=== PATIENT | female | born 1995 | race Caucasian/White ===

== ENCOUNTER 2016-11-18 03:22 | Observation (INO) | payer MEDICAID, OTHER ==
[~2016-11-18] VITALS: Ht 157.5 cm; Wt 90.0 kg
[2016-11-18 03:22] VITALS: BP 189/117; PULSE 81; RESP 18; TEMP 97.6; O2SAT 98
[~2016-11-18 03:22] MED LIST: IBUP600 PO; NIFE1TAB85 PO; PRENCAP10 PO
[2016-11-18] MEDS ORDERED: SODIUM CHLOR 0.9% 1000 ML INJ 1,000 ML IV SCH ×3 (03:34→05:45)
--- NOTE | 2016-11-18 03:42 | PD ---
HPI Chief Complaint: GI Complaint Time Seen by Provider: 03:29 Travel History International Travel<30 days: No Contact w/Intl Traveler<30days: No Traveled to known affect area: No History of Present Illness HPI 21-year-old female LMP now has right upper quadrant pain for 2 days. No fever. Appetite has been normal. Onset gradual. Pain is worse with palpation. Severity moderate. Denies PMH/PSH. No meds/allergies. PFSH Past Medical History ?: Not LMP: 11/16/16 Social History Alcohol Use: No Tobacco Use: No Allergies-Medications (Allergen,Severity, Reaction): Coded Allergies: No Known Allergies (Unverified , 11/18/16) Reported Meds & Prescriptions Reported Meds & Active Scripts Active No Active Prescriptions or Reported Medications Review of Systems Except as stated in HPI: all other systems reviewed are Neg General / Constitutional: No: Fever, Chills Gastrointestinal: Positive: Abdominal Pain, No: Nausea, Vomiting, Diarrhea Physical Exam Narrative GENERAL: 21 yo F, WNWD SKIN: Warm and dry. HEAD: Atraumatic. Normocephalic. EYES: Pupils equal and round. No scleral icterus. No injection or drainage. ENT: No nasal bleeding or discharge. Mucous membranes pink and moist. NECK: Trachea midline. No JVD. CARDIOVASCULAR: Regular rate and rhythm. RESPIRATORY: No accessory muscle use. Clear to auscultation. Breath sounds equal bilaterally. GASTROINTESTINAL: Positive Pereira's sign. Soft. No tenderness at McBurney's point. MUSCULOSKELETAL: Extremities without clubbing, cyanosis, or edema. No obvious deformities. NEUROLOGICAL: Awake and alert. No obvious cranial nerve deficits. Motor grossly within normal limits. Five out of 5 muscle strength in the arms and legs. Normal speech. PSYCHIATRIC: Appropriate mood and affect; insight and judgment normal. Data Data Last Documented VS Vital Signs Date Time Temp Pulse Resp B/P Pulse Ox O2 Delivery O2 Flow Rate FiO2 11/18/16 04:18 16 11/18/16 03:22 97.6 81 189/117 98 Room Air HTN noted Orders Complete Blood Count With Diff (11/18/16 03:34) Comprehensive Metabolic Panel (11/18/16 03:34) Lipase (11/18/16 03:34) Urinalysis - C+S If Indicated (11/18/16 03:34) Us Abdomen Gallbladder (11/18/16 ) Iv Access Insert/Monitor (11/18/16 03:34) Ecg Monitoring (11/18/16 03:34) Oximetry (11/18/16 03:34) Ondansetron Inj (Zofran Inj) (11/18/16 03:45) Sodium Chlor 0.9% 1000 Ml Inj (Ns 1000 M (11/18/16 03:34) Sodium Chloride 0.9% Flush (Ns Flush) (11/18/16 03:45) Hydromorphone Pf Inj (Dilaudid Pf Inj) (11/18/16 03:45) Al-Mag Hy-Si 40-40-4 Mg/Ml Liq (Mag-Al P (11/18/16 03:45) Lidocaine 2% Viscous (Xylocaine 2% Visco (11/18/16 03:45) Ed Urine Pregnancytest Poc (11/18/16 03:34) Urine Culture (11/18/16 03:50) Ciprofloxacin (Cipro) (11/18/16 04:30) Hydromorphone Pf Inj (Dilaudid Pf Inj) (11/18/16 05:15) Metronidazole 500 Mg Inj (Flagyl 500 Mg (11/18/16 05:45) Sodium Chlor 0.9% 1000 Ml Inj (Ns 1000 M (11/18/16 05:45) Admit Order (Ed Use Only) (11/18/16 05:35) Labs Laboratory Tests Test 11/18/16 03:50 White Blood Count 12.5 TH/MM3 Red Blood Count 4.34 MIL/MM3 Hemoglobin 13.4 GM/DL Hematocrit 38.4 % Mean Corpuscular Volume 88.4 FL Mean Corpuscular Hemoglobin 30.8 PG Mean Corpuscular Hemoglobin 34.9 % Concent Red Cell Distribution Width 13.8 % Platelet Count 181 TH/MM3 Mean Platelet Volume 9.7 FL Neutrophils (%) (Auto) 73.3 % Lymphocytes (%) (Auto) 19.3 % Monocytes (%) (Auto) 6.3 % Eosinophils (%) (Auto) 0.5 % Basophils (%) (Auto) 0.6 % Neutrophils # (Auto) 9.2 TH/MM3 Lymphocytes # (Auto) 2.4 TH/MM3 Monocytes # (Auto) 0.8 TH/MM3 Eosinophils # (Auto) 0.1 TH/MM3 Basophils # (Auto) 0.1 TH/MM3 CBC Comment DIFF FINAL Differential Comment Urine Color RED Urine Turbidity HAZY Urine pH 6.0 Urine Specific [place] 1.033 Urine Protein 100 mg/dL Urine Glucose (UA) NEG mg/dL Urine Ketones TRACE mg/dL Urine Occult Blood LARGE Urine Nitrite NEG Urine Bilirubin NEG Urine Urobilinogen LESS THAN 2.0 MG/DL Urine Leukocyte Esterase MOD Urine RBC /hpf Urine WBC 61 /hpf Urine Squamous Epithelial 23 /hpf Cells Urine Bacteria FEW /hpf Urine Mucus FEW /lpf Microscopic Urinalysis Comment CULTURE INDICATED Sodium Level 142 MEQ/L Potassium Level 4.0 MEQ/L Chloride Level 106 MEQ/L Carbon Dioxide Level 28.1 MEQ/L Anion Gap 8 MEQ/L Blood Urea Nitrogen 14 MG/DL Creatinine 0.80 MG/DL Estimat Glomerular Filtration 91 ML/MIN Rate Random Glucose 108 MG/DL Calcium Level 8.9 MG/DL Total Bilirubin 0.3 MG/DL Aspartate Amino Transf 12 U/L (AST/SGOT) Alanine Aminotransferase 29 U/L (ALT/SGPT) Alkaline Phosphatase 88 U/L Total Protein 7.9 GM/DL Albumin 4.1 GM/DL Lipase 106 U/L [facility] Medical Decision Making Medical Screen Exam Complete: Yes Emergency Medical Condition: Yes Medical Record Reviewed: Yes Differential Diagnosis Constipation, Gastritis, Acute Cholecystitis, Biliary Colic, Pancreatitis, QUINTEROS , Hepatitis, Bowel Obstruction, Cystitis, Mesenteric Ischemia, AAA, Appendicitis , Renal Stone/Hydronephrosis, GERD, perforated viscous Narrative Course CBC & BMP Diagram 11/18/16 03:50 LFTs normal Lipase normal UA UTI present Last 24 hours Impressions Gall Bladder Ultrasound 11/18/16 0000 Signed Impressions: Service Date/Time: Friday, November 18, 2016 04:21 - CONCLUSION: Multiple stones in the gallbladder. No biliary tract obstruction. Hugh Conway MD + Pereira's sign. Dilaudid 0.75mg IV given twice. Cipro/Flagyl started. d/w Dr Fuentes. d/w Dr Clemens. NS 125/hr. Diagnosis Primary Impression: Gallbladder calculus without cholecystitis Qualified Code: K80.20 - Calculus of gallbladder without cholecystitis without obstruction Additional Impressions: UTI (urinary tract infection) Qualified Code: N30.01 - Acute cystitis with hematuria Intractable abdominal migraine HTN (hypertension) Qualified Code: I15.9 - Secondary hypertension Admitting Information Admitting Physician Requests: Admit Scripts No Active Prescriptions or Reported Meds Jesus Alberto Saleh MD Nov 18, 2016 03:42
[2016-11-18] MEDS ORDERED: SODIUM CHLORIDE 0.9% FLUSH 5 ML FLUSH IVF PRN ×2 (03:45→19:30)
[2016-11-18] MEDS ORDERED: HYDROmorphone HCL PF 1 MG/ML VIAL IVS ONE (03:45)
[2016-11-18] MEDS ORDERED: ALUMINUM/MAGNESIUM/SIMETH 30 ML CUP PO ONE (03:45)
[2016-11-18] MEDS ORDERED: LIDOCAINE VISCOUS 2% SOLN 15 ML UDC PO ONE (03:45)
[2016-11-18] MEDS ORDERED: ONDANSETRON HCL 4 MG/2 ML VIAL IVP ONE (03:45)
[2016-11-18 04:13] LABS: AUTOMATED NEUTROPHIL # 9.2 TH/MM3 (1.8-7.7); BASOPHIL # 0.1 TH/MM3 (0-0.2); BASOPHIL % 0.6 % (0.0-2.0); EOSINOPHIL # 0.1 TH/MM3 (0-0.4); EOSINOPHIL % 0.5 % (0.0-4.0); HEMATOCRIT 38.4 % (35.0-46.0); HEMO FLAGS DIFF FINAL; LYMPH % 19.3 % (9.0-44.0); LYMPHOCYTE # 2.4 TH/MM3 (1.0-4.8); MEAN CELL VOLUME 88.4 FL (80.0-100.0); MEAN CORPUSCULAR HEMOGLOBIN 30.8 PG (27.0-34.0); MEAN CORPUSCULAR HGB CONC 34.9 % (32.0-36.0); MONO % 6.3 % (0.0-8.0); NEUT % 73.3 % (16.0-70.0); PLATELET COUNT 181 TH/MM3 (150-450); RED BLOOD COUNT 4.34 MIL/MM3 (4.00-5.30); RED CELL DISTRIBUTION WIDTH 13.8 % (11.6-17.2); WHITE BLOOD COUNT 12.5 TH/MM3 (4.0-11.0)
[2016-11-18 04:16] LABS: BACTERIA, URINE FEW /hpf; BLOOD, URINE LARGE (NEG); COMMENT (UR) CULTURE INDICATED; CULTURE IF INDICATED CULTURE INDICATED; GLUCOSE,URINE NEG (NEG); KETONE, URINE TRACE mg/dL (NEG); MUCUS URINE FEW /lpf (OCC); NITRITE,URINE NEG (NEG); SQUAMOUS EPITHELIAL CELL URINE 23 /hpf (0-5)
[2016-11-18 04:17] LABS: URINE COLOR RED (YELLW/STRAW)
[2016-11-18 04:18] VITALS: RESP 16
[2016-11-18 04:21] LABS: ANION GAP 8 MEQ/L (5-15); AST (GOT) 12 U/L (15-37); BICARBONATE 28.1 MEQ/L (21.0-32.0); BLOOD UREA NITROGEN 14 MG/DL (7-18); CHLORIDE 106 MEQ/L (98-107); GLOMERULAR FILTRATION RATE 91 ML/MIN (>89); SODIUM (NA) 142 MEQ/L (136-145)
[2016-11-18 04:24] LABS: ALKALINE PHOSPHATASE 88 U/L (45-117); ALT (GPT) 29 U/L (10-53); TOTAL BILIRUBIN ADULT 0.3 MG/DL (0.2-1.0)
[2016-11-18] MEDS ORDERED: CIPROFLOXACIN 500 MG TAB PO ONE (04:30)
--- NOTE | 2016-11-18 04:51 | RADRPT ---
EXAM DATE/TIME: 11/18/2016 04:21 [place] COMPARISON: No previous studies available for comparison. INDICATIONS : Right upper quadrant pain. MEDICAL HISTORY : Right upper quadrant pain. SURGICAL HISTORY : No surgical history. ENCOUNTER: Initial ACUITY: 3 days PAIN SCORE: 8/10 LOCATION: Right upper quadrant MEASUREMENTS: LIVER: 17.1 cm length COMMON DUCT: 6 mm RIGHT KIDNEY: 11.8 x 5.7 x 4.2 cm FINDINGS: LIVER: Normal echotexture without focal lesion or ductal dilatation. The portal system is patent. There is n o evidence of ascites. COMMON DUCT: No intraluminal mass or stone visualized. GALLBLADDER: There are multiple stones in the gallbladder. There is mild thickening of the gallbladder wall. No fl uid around the gallbladder. PANCREAS: The visualized portions are within normal limits. RIGHT KIDNEY: No evidence of hydronephrosis, stone, or mass. CONCLUSION: Multiple stones in the gallbladder. No biliary tract obstruction. Hugh Conway MD on November 18, 2016 at 4:49 Board Certified Radiologist. This report was verified electronically.
[2016-11-18] MEDS ORDERED: HYDROmorphone HCL PF 1 MG/ML VIAL IV PUSH ONE (05:15)
[2016-11-18] MEDS ORDERED: SENNOSIDES 8.6 MG TAB PO PRN (05:45)
[2016-11-18] MEDS ORDERED: ONDANSETRON HCL 4 MG/2 ML VIAL IVP PRN (05:45)
[2016-11-18] MEDS ORDERED: NALOXONE HCL 0.4 MG/ML AMP IV PRN (05:45)
[2016-11-18] MEDS ORDERED: SODIUM CHLORIDE 0.9% FLUSH 5 ML FLUSH FLUSH PRN (05:45)
[2016-11-18] MEDS ORDERED: metroNIDAZOLE 500 MG INJ 100 ML IV ONE (05:45)
[2016-11-18] MEDS ORDERED: ACETAMINOPHEN 325 MG TAB PO PRN ×2 (05:45)
[2016-11-18] MEDS ORDERED: ENALAPRILAT 1.25 MG/ML VIAL IV PUSH PRN (06:00)
--- NOTE | 2016-11-18 06:00 | HHI.HP ---
[facility] No Primary Care Physician Admission Diagnosis GB Calculi; Cystitis Diagnoses: Chief Complaint: Abdominal pain Travel History International Travel<30 Days: No Contact w/Intl Traveler <30 Da: No Traveled to Known Affected Are: No History of Present Illness The patient is a 21-year-old female with history of preeclampsia is presenting to the hospital with severe abdominal pain. She said her pain started 2 days ago. The pain is located in the epigastric area and the right upper quadrant and radiates to both sides of her mid back. She says the pain comes and goes. Sometimes it gets to an 8 or 9 out of 10 in severity. She believes that the pain is at its worst during the night. She takes showers and alternates hot and cold water to relieve her symptoms. She said that helps a little bit. She has not noticed any fevers. She has had episodes of nausea and vomiting. She has been tolerating a diet. She says she's never had symptoms like this before. She said she just had her first child 5 months ago. She said the pain medication she received in the emergency department have been helping. Review of Systems Constitutional: DENIES: Fever, Change in appetite Gastrointestinal: COMPLAINS OF: Abdominal pain, Nausea, Vomiting, DENIES: Diarrhea Other 10 point review of systems conducted and positive per history of present illness otherwise negative Past Family Social History Past Medical History Preeclampsia Allergies: Coded Allergies: No Known Allergies (Unverified , 11/18/16) Active Ordered Medications Current Medications Medications (Trade) Dose Ordered Sig/[place] Route Start Time Stop Time Status Last Admin IV Flush 2 ml 2 ml UNSCH PRN IVF 11/18/16 03:45 Metronidazole 100 ml @ 100 mls/hr ONCE ONCE IV 11/18/16 05:45 11/18/16 06:44 Sodium Chloride 1,000 ml @ 125 mls/hr Q8H IV 11/18/16 05:45 (NS 1000 ml Inj) 1,000 ml @ 100 mls/hr Q10H IV 11/18/16 05:36 UNV (NS Flush) 2 ml UNSCH PRN FLUSH 11/18/16 05:45 UNV (NS Flush) 2 ml BID FLUSH 11/18/16 09:00 UNV (Tylenol) 650 mg Q4H PRN PO 11/18/16 05:45 UNV (Zofran Inj) 4 mg Q6H PRN IVP 11/18/16 05:45 UNV (Colace) 100 mg Q12H PO 11/18/16 05:45 UNV (Senokot) 17.2 mg Q12H PRN PO 11/18/16 05:45 UNV (Tylenol) 650 mg Q6H PRN PO 11/18/16 05:45 UNV (Roxicodone) 10 mg Q4H PRN PO 11/18/16 05:45 UNV (Dilaudid Pf Inj) 1 mg Q3H PRN IV 11/18/16 05:45 UNV (Roxicodone) 5 mg Q4H PRN PO 11/18/16 05:45 UNV (Narcan Inj) 0.4 mg UNSCH PRN IV 11/18/16 05:45 UNV (Vasotec Inj) 1.25 mg Q6H PRN IV PUSH 11/18/16 06:00 UNV Family History The patient denies pertinent history. Social History The patient does not smoke. She has rare alcohol intake. No drug use. Physical Exam Vital Signs Vital Signs Date Time Temp Pulse Resp B/P Pulse Ox O2 Delivery O2 Flow Rate FiO2 11/18/16 04:18 16 11/18/16 03:22 97.6 81 18 189/117 98 Room Air Physical Exam GENERAL: This is a well-nourished, well-developed patient, in no apparent distress. SKIN: No rashes, ecchymoses or lesions. Cool and dry. HEAD: Atraumatic. Normocephalic. No temporal or scalp tenderness. EYES: Pupils equal round and reactive. Extraocular motions intact. No scleral icterus. No injection or drainage. ENT: Nose without bleeding, purulent drainage or septal hematoma. Throat without erythema, tonsillar hypertrophy or exudate. Uvula midline. Airway patent. NECK: Trachea midline. No JVD or lymphadenopathy. Supple, nontender, no meningeal signs. CARDIOVASCULAR: Distant heart sounds. Regular rate and rhythm without murmurs, gallops, or rubs. RESPIRATORY: Clear to auscultation. Breath sounds equal bilaterally. No wheezes , rales, or rhonchi. GASTROINTESTINAL: Abdomen soft, tender to palpation in the right upper quadrant , especially around the ribs. No hepato-splenomegaly, or palpable masses. No guarding. MUSCULOSKELETAL: No back tenderness to palpation. Extremities without clubbing , cyanosis, or edema. No joint tenderness, effusion, or edema noted. NEUROLOGICAL: Awake and alert. Cranial nerves II through XII intact. Motor and sensory grossly within normal limits. Five out of 5 muscle strength in all muscle groups. Normal speech. PSYCH: Mood and affect appropriate. Laboratory Laboratory Tests Test 11/18/16 03:50 White Blood Count 12.5 Red Blood Count 4.34 Hemoglobin 13.4 Hematocrit 38.4 Mean Corpuscular Volume 88.4 Mean Corpuscular Hemoglobin 30.8 Mean Corpuscular Hemoglobin 34.9 Concent Red Cell Distribution Width 13.8 Platelet Count 181 Mean Platelet Volume 9.7 Neutrophils (%) (Auto) 73.3 Lymphocytes (%) (Auto) 19.3 Monocytes (%) (Auto) 6.3 Eosinophils (%) (Auto) 0.5 Basophils (%) (Auto) 0.6 Neutrophils # (Auto) 9.2 Lymphocytes # (Auto) 2.4 Monocytes # (Auto) 0.8 Eosinophils # (Auto) 0.1 Basophils # (Auto) 0.1 CBC Comment DIFF FINAL Differential Comment Urine Color RED Urine Turbidity HAZY Urine pH 6.0 Urine Specific [place] 1.033 Urine Protein 100 Urine Glucose (UA) NEG Urine Ketones TRACE Urine Occult Blood LARGE Urine Nitrite NEG Urine Bilirubin NEG Urine Urobilinogen LESS THAN 2.0 Urine Leukocyte Esterase MOD Urine RBC Urine WBC 61 Urine Squamous Epithelial 23 Cells Urine Bacteria FEW Urine Mucus FEW Microscopic Urinalysis Comment CULTURE INDICATED Sodium Level 142 Potassium Level 4.0 Chloride Level 106 Carbon Dioxide Level 28.1 Anion Gap 8 Blood Urea Nitrogen 14 Creatinine 0.80 Estimat Glomerular Filtration 91 Rate Random Glucose 108 Calcium Level 8.9 Total Bilirubin 0.3 Aspartate Amino Transf 12 (AST/SGOT) Alanine Aminotransferase 29 (ALT/SGPT) Alkaline Phosphatase 88 Total Protein 7.9 Albumin 4.1 Lipase 106 Date/Time Procedure Status Source Growth 11/18/16 03:50 Urine Culture Received Urine Clean Catch Pending Result Diagram: 11/18/16 0350 11/18/16 0350 Imaging Last Impressions Gall Bladder Ultrasound 11/18/16 0000 Signed Impressions: Service Date/Time: Friday, November 18, 2016 04:21 - CONCLUSION: Multiple stones in the gallbladder. No biliary tract obstruction. Hugh Conway MD Assessment and Plan Assessment and Plan Cholecystitis The patient presents with 2 days of severe abdominal pain in the right upper quadrant. Ultrasound with multiple gallstones and slight thickening of the gallbladder wall. The patient has leukocytosis. LFTs unremarkable. - Continue Cipro and Flagyl. - Pain control with a bowel regimen. - Gen. surgery consult pending. - Blood cultures 2. - keep the pt NPO with IVFs for now. Hypertensive urgency The patient has a history of preeclampsia. Blood pressure is likely exacerbated by pain. - Continue pain medication. - Vasotec prn. - Start antihypertensives as needed. UTI UA indicative of an infection. - Continue antibiotics as above. - Follow urine culture. PPx: SCDs Code Status Full. Discussed Condition With Pt, pt's family, Dr. Saleh. Physician Certification 2 Midnight Certification Type: Admission for Inpatient Services Order for Inpatient Services The services are ordered in accordance with Medicare regulations or non- Medicare payer requirements, as applicable. In the case of services not specified as inpatient-only, they are appropriately provided as inpatient services in accordance with the 2-midnight benchmark. Estimated LOS (days): 2 days is the estimated time the patient will need to remain in the hospital, assuming treatment plan goals are met and no additional complications. Post-Hospital Plan: Home Too Clemens DO Nov 18, 2016 06:00
[2016-11-18] MEDS: DOCUSATE SODIUM 100 MG CAP PO SCH ×2 (06:07→17:45)
[2016-11-18 06:19] VITALS: BP 124/65; PULSE 65; RESP 16; O2SAT 99
[2016-11-18] MEDS ORDERED: ceFAZolin 2 GM PREMIX 50 ML IV SCH (07:30)
[2016-11-18] MEDS ORDERED: metroNIDAZOLE 500 MG INJ 100 ML IV SCH (07:30)
[2016-11-18 08:47] VITALS: BP 159/96; PULSE 58; RESP 18; O2SAT 97
[2016-11-18] MEDS ORDERED: SODIUM CHLORIDE 0.9% FLUSH 5 ML FLUSH FLUSH SCH (09:00)
[2016-11-18] MEDS: HYDROmorphone HCL PF 1 MG/ML VIAL IV PRN ×2 (09:50→14:57)
--- NOTE | 2016-11-18 11:29 | MB ---
cc: NESSA RAMOS M.D. DATE OF CONSULTATION 11/18/2016 REASON FOR CONSULTATION Calculous cholecystitis BRIEF HISTORY This is an otherwise healthy 21-year-old young lady five months who has developed recurrent episodes of upper abdominal pain, nausea with emesis. The patient last night had [employer] to eat for dinner she could not get to sleep. She had severe upper abdominal pain that went through the back associated nausea and vomiting. This happened over the last several days. A few days ago, she took some aspirin and the pain would not go away. She denies fevers or chills. She denies change in bowel or bladder habits. She denies dysuria or frequency. She was evaluated in the emergency department found to have an elevated white count of 12.5 with 73% neutrophils. She has an abnormal urinalysis consistent with urinary tract infection. She has normal liver function tests. Her pain was localized in the right upper quadrant and an ultrasound of the right upper quadrant demonstrated multiple gallstones and a mildly thickened gallbladder wall. Due to the severity of the pain, it was felt she would benefit from admission for gallbladder surgery. ALLERGIES She has no known drug allergies. PAST MEDICAL HISTORY Not significant. MEDICATIONS She takes no routine medications. Last took aspirin a few days ago. PAST SURGICAL HISTORY She denies any prior surgeries. INTERNET MANAGER HISTORY She had a standard vaginal delivery of a healthy child about five months ago. FAMILY HISTORY Noncontributory SOCIAL HISTORY She denies tobacco abuse. She has multiple tattoos. She has occasional alcohol use. She denies HIV or hepatitis risk factors. REVIEW OF SYSTEMS On review of systems, she denies unusual bleeding tendencies. She denies visual, hearing, sinus or swallowing problems. She has no history of asthma, bronchitis, or pneumonia. No history of irregular heartbeat or heart murmur. She denies acid reflux disease, chronic constipation or diarrhea, blood in urine or stool. She is presently undergoing her menstrual period. She denies a history of liver, kidney abnormalities. She has no history of strokes or seizures, diabetes or thyroid gland problems. She does not routinely take blood thinning medications. PHYSICAL EXAM Physical exam shows mildly overweight young lady who is in no acute distress. She says her pain is returning after previous pain shot. She request more pain medication. VITAL SIGNS: Temperature is 97.y, pulse 65, respiratory rate 16, blood pressure 124/65, O2 sats 99% on room air. HEENT: She is normocephalic, atraumatic. Pupils are equal, round, reactive to light. Her sclerae are anicteric. Oropharynx is clear without mucosal lesions. NECK: Her neck is supple without adenopathy. She has a midline trachea. No jugular distension. LUNGS: Lung sounds are clear and equal anteriorly bilaterally. HEART: Heart sounds regular without obvious murmur, rub or gallop. BREASTS, GENITAL AND RECTAL: Exams are deferred. ABDOMEN: Mildly obese, soft and nondistended. She has few normal bowel sounds. She has no obvious hernias. No obvious scars. She has tenderness in the right upper quadrant to palpation without rebound or guarding. EXTREMITIES: Her extremities show no cyanosis, clubbing or edema. She again has multiple extremity and torso tattoos. She has equal radial and dorsalis pedis pulses. NEUROLOGIC: She is awake, alert, and oriented. She has equal strong bilateral intervention specialist strength and no gross motor or sensory deficits. LABORATORY DATA Additional laboratory values include a hemoglobin of 13.4, platelet count of 181. Her total bilirubin was 0.3, alkaline phosphate 88, lipase was 106. Urinalysis demonstrated moderate leukocyte esterase, 61 white cells and a few bacteria and a culture was indicated. IMAGING Her imaging is as discussed above. 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 Discussed with her the option of pursuing laparoscopic cholecystectomy. The procedure in detail including risks of bleeding, infection, injury to intra-abdominal contents including bile duct, bowel or liver. We talked about DVT, pulmonary embolus, uses of sequential compression device. We talked about the possibility of an open surgery. Plans will be made to add her on to the schedule for laparoscopic cholecystectomy, possible open, possible intraoperative cholangiogram. She understands and is willing to proceed as recommended. MD [facility]/EH /7:31 AM /11:19 AM
[2016-11-18] MEDS ORDERED: ONDANSETRON HCL 4 MG/2 ML VIAL IV PUSH ONE (12:00)
[2016-11-18] MEDS ORDERED: PROPOFOL 200 MG/20 ML AMP IV ONE (12:00)
[2016-11-18] MEDS ORDERED: KETOROLAC TROMETHAMINE 30 MG/ML (IVP) VIAL IV PUSH ONE (12:00)
[2016-11-18] MEDS ORDERED: LACTATED RINGER'S 1000 ML IV SCH (12:15)
[2016-11-18] MEDS ORDERED: INSULIN HUMAN REGULAR 1,000 UNITS/10 ML VIAL SQ PRN (12:15)
[2016-11-18] MEDS ORDERED: SODIUM CHLORID 0.9% 500 ML IV SCH (12:15)
[2016-11-18] MEDS ORDERED: METOPROLOL TARTRATE 25 MG TAB PO PRN (12:15)
[2016-11-18] MEDS ORDERED: BUPIVACAINE/EPINEPHRINE 0.25% PF 30 ML VIAL ONE (14:14)
[2016-11-18] MEDS ORDERED: CIPROFLOXACIN 400 MG PREMIX 200 ML IV SCH (16:00)
[2016-11-18] MEDS ORDERED: SUGAMMADEX SODIUM 200 MG/2 ML VIAL IV PUSH ONE ×2 (18:52)
--- NOTE | 2016-11-18 19:18 | PD.OP ---
Operative Report Date of Surgery: Nov 18, 2016 Preoperative Diagnosis: calculous cholecystitis Postoperative Diagnosis: same acute, and chronic Procedure: lap francesco Anesthesia: general Surgeon: Jarrod Fuentes [employer] Enforcement Agent(s): Taryn Operation and Findings: acute cholecystitis with hydrops of GB. GB to path. EBL less than 10 ml. Jarrod Fuentes MD Nov 18, 2016 19:18
[2016-11-18] MEDS ORDERED: DO NOT ADM ANY ANTICOAGULANT DRUGS XX PRN (19:20)
[2016-11-18] MEDS ORDERED: HYDR-3533 PO (19:23)
[2016-11-18] MEDS ORDERED: MORPHINE SULFATE 4 MG/ML INJ IV PRN (19:25)
[2016-11-18] MEDS ORDERED: fentaNYL CITRATE 250 MCG/5 ML AMP ONE (19:26)
[2016-11-18] MEDS ORDERED: Post-op Orders (for Pharmacy) MISC XX ONE (19:30)
[2016-11-18] MEDS ORDERED: ONDANSETRON HCL 4 MG/2 ML VIAL IV PRN (19:30)
[2016-11-18] MEDS ORDERED: MORPHINE SULFATE 8 MG/ML INJ IV PUSH PRN (19:30)
[2016-11-18] MEDS ORDERED: ACETAMINOPHEN/HYDROcodone 325 MG/5 MG TAB PO PRN (19:30)
[2016-11-18] MEDS ORDERED: diphenhydrAMINE HCL 25 MG CAP PO PRN (19:30)
[2016-11-18] MEDS: SODIUM CHLOR 0.9% 1000 ML INJ 1,000 ML IV SCH (20:00)
[2016-11-18] MEDS: ACETAMINOPHEN 1000 MG/100 ML VIAL IV SCH ×2 (20:39→21:09)
[2016-11-18 21:00] VITALS: BP 120/75; PULSE 77; RESP 16; TEMP 97.2; O2SAT 97
[2016-11-18] MEDS: metroNIDAZOLE 500 MG INJ 100 ML IV SCH (21:05)
[2016-11-18] MEDS: ACETAMINOPHEN/HYDROcodone 325 MG/5 MG TAB PO PRN (21:06)
[2016-11-18] MEDS: SODIUM CHLORIDE 0.9% FLUSH 5 ML FLUSH IVF SCH (21:08)
[2016-11-19] VITALS: BP 119/67; PULSE 80; RESP 16; TEMP 97.5; O2SAT 96
[2016-11-19] MEDS: ACETAMINOPHEN 1000 MG/100 ML VIAL IV SCH ×2 (03:40→13:56)
[2016-11-19 04:00] VITALS: BP 149/94; PULSE 80; RESP 18; TEMP 98; O2SAT 100
[2016-11-19] MEDS: DOCUSATE SODIUM 100 MG CAP PO SCH (04:56)
[2016-11-19] MEDS: SODIUM CHLOR 0.9% 1000 ML INJ 1,000 ML IV SCH (06:00)
[2016-11-19] MEDS: metroNIDAZOLE 500 MG INJ 100 ML IV SCH ×2 (06:31→13:48)
[2016-11-19 07:23] LABS: AUTOMATED NEUTROPHIL # 7.5 TH/MM3 (1.8-7.7); BASOPHIL % 0.2 % (0.0-2.0); HEMATOCRIT 38.5 % (35.0-46.0); HEMO FLAGS DIFF FINAL; LYMPH % 10.6 % (9.0-44.0); MEAN CELL VOLUME 89.8 FL (80.0-100.0); MEAN CORPUSCULAR HEMOGLOBIN 30.5 PG (27.0-34.0); MEAN CORPUSCULAR HGB CONC 33.9 % (32.0-36.0); MONO % 7.7 % (0.0-8.0); NEUT % 81.5 % (16.0-70.0); PLATELET COUNT 167 TH/MM3 (150-450); RED BLOOD COUNT 4.29 MIL/MM3 (4.00-5.30); WHITE BLOOD COUNT 9.2 TH/MM3 (4.0-11.0)
[2016-11-19 07:33] VITALS: O2SAT 99
[2016-11-19 07:36] VITALS: BP 140/91; PULSE 79; RESP 20; TEMP 97.1; O2SAT 97
[2016-11-19 07:58] LABS: ALKALINE PHOSPHATASE 161 U/L (45-117); ALT (GPT) 780 U/L (10-53); ANION GAP 7 MEQ/L (5-15); AST (GOT) 891 U/L (15-37); BICARBONATE 27.1 MEQ/L (21.0-32.0); BLOOD UREA NITROGEN 5 MG/DL (7-18); CHLORIDE 106 MEQ/L (98-107); GLOMERULAR FILTRATION RATE 109 ML/MIN (>89); POTASSIUM 3.7 MEQ/L (3.5-5.1); SODIUM (NA) 140 MEQ/L (136-145); TOTAL BILIRUBIN ADULT 2.5 MG/DL (0.2-1.0)
--- NOTE | 2016-11-19 08:18 | HHI.DS ---
Discharge Summary Admission Date Nov 18, 2016 at 05:38 Discharge Date: Nov 19, 2016 Admitting Diagnosis GB Calculi; Cystitis Procedures lap francesco Brief History 21 year old 5 months psot partume with calculous cholecystitis and UTI. CBC/BMP: 11/19/16 0639 11/19/16 0639 Significant Findings Laboratory Tests Test 11/18/16 11/19/16 03:50 06:39 White Blood Count 12.5 TH/MM3 (4.0-11.0) Neutrophils (%) (Auto) 73.3 % 81.5 % (16.0-70.0) (16.0-70.0) Neutrophils # (Auto) 9.2 TH/MM3 (1.8-7.7) Urine Color RED (YELLW/STRAW) Urine Turbidity HAZY (CLEAR) Urine Protein 100 mg/dL (NEG-TRACE) Urine Ketones TRACE mg/dL (NEG) Urine Occult Blood LARGE (NEG) Urine Leukocyte Esterase MOD (NEG) Urine WBC 61 /hpf (0-5) Urine Bacteria FEW /hpf (NONE) Urine Mucus FEW /lpf (OCC) Random Glucose 108 MG/DL 115 MG/DL (74-106) (74-106) Aspartate Amino Transf 12 U/L (15-37) 891 U/L (15-37) (AST/SGOT) Blood Urea Nitrogen 5 MG/DL (7-18) Total Bilirubin 2.5 MG/DL (0.2-1.0) Alanine Aminotransferase 780 U/L (10-53) (ALT/SGPT) Alkaline Phosphatase 161 U/L (45-117) PE at Discharge All 3 trocar sites healing well beneath steristrips, no erythema or drainage. Hospital Course admitted through ED for lap francesco. Abx provided. had surgery, feels better postop. Can go home after breakfast. Pt Condition on Discharge: Good Discharge Disposition: Discharge Home Discharge Instructions DIET: Follow Instructions for: As Tolerated, No Restrictions Activities you can perform: Shower Only-No Bath Activities to Avoid: Strenuous Activity Jarrod Fuentes MD Nov 19, 2016 08:18
[2016-11-19] MEDS ORDERED: INFLUENZA VIRUS VACCINE (QUADRIVALENT) 0.5 ML SYR IM ONE (09:00)
[2016-11-19] MEDS: ACETAMINOPHEN/HYDROcodone 325 MG/5 MG TAB PO PRN (11:10)
[2016-11-19] MEDS: SODIUM CHLORIDE 0.9% FLUSH 5 ML FLUSH IVF SCH (11:14)
[2016-11-19 13:00] VITALS: BP 135/94; PULSE 87; RESP 18; TEMP 98.2; O2SAT 94
[2016-11-19 15:53] VITALS: BP 135/89; PULSE 83; RESP 18; TEMP 97; O2SAT 99
[2016-11-19] MEDS ORDERED: ENOXAPARIN SODIUM 40 MG/0.4 ML SYRINGE SQ SCH (18:00)
[2016-11-19] MEDS ORDERED: DOCUSATE SODIUM 100 MG CAP PO SCH (21:00)
--- NOTE | 2016-11-23 16:44 | MP ---
cc: NESSA RAMOS M.D. DATE OF SURGERY: 11/18/2016 PREOPERATIVE DIAGNOSIS Calculous cholecystitis. POSTOPERATIVE DIAGNOSIS Acute and chronic calculous cholecystitis. PROCEDURE Laparoscopic cholecystectomy. SURGEON Dr. Nessa Ramos ANESTHESIA General endotracheal. INDICATIONS A very pleasant, otherwise healthy 21-year-old five months , who developed recurrent episodes of upper abdominal pain, nausea with emesis. Work-up demonstrated multiple gallstones with thickened gallbladder wall. Recommendations were made for a cholecystectomy. INTRAOPERATIVE FINDINGS Severely distended gallbladder with hydrops. Clear bile suctioned out. Gallbladder stones removed and sent to pathology. ESTIMATED BLOOD LOSS Less than 10 mL. DESCRIPTION OF PROCEDURE IN DETAIL The patient was identified as Cathy Guillaume, taken to the operating room and placed in supine position. Sequential compression devices were placed on bilateral lower extremities. Following induction of adequate general endotracheal anesthesia the patient's abdomen was prepped and draped in the usual sterile fashion with Betadine. A timeout procedure was performed. Following completion of the timeout procedure to everyone's satisfaction within the room, 0.25% Marcaine with epinephrine was placed at each incision site. A 3 cm transverse supraumbilical incision was carried out with a scalpel and dissection continued posteriorly to the level of the midline fascia at the base of the umbilicus which was retracted anteriorly with a Pérez clamp. The supraumbilical fascial incision was carried out with a scalpel and entry into the peritoneal cavity was facilitated with the surgeon's finger. The [employer] balloon Jerel trocar was placed in the peritoneal cavity, its balloon inflated with CO2 insufflation until a level of 15 mmHg ensued. The patient was placed in a steep reverse Trendelenburg position turned to the left. Two upper abdominal 5 mm trocars were placed in the peritoneal cavity under direct laparoscopic view after incision of the skin with a scalpel. The gallbladder was immediately identified with a significantly distended and edematous wall. It could not be grabbed with a blunt grasper. It was drained using a Harmonic scalpel and suction device and clear bile was suctioned out consistent with hydrops of the gallbladder. The gallbladder was then mobilized from the dome down using the Harmonic scalpel. A 0 PDS Endoloop was placed across the top of the gallbladder to prevent any spillage. The cystic artery was divided with the Harmonic scalpel. The cystic duct was isolated from surrounding tissues, ligated distally with 0 PDS Endoloop and the gallbladder amputated using a Harmonic scalpel. The gallbladder was placed into an Endo Retriever bag and removed through the supraumbilical fascial port incision site and passed off the field for pathologic evaluation. The right upper quadrant was examined. The gallbladder fossa was hemostatic. There was no bilious or bloody drainage. The cystic duct ligature remained intact. The right upper quadrant was irrigated copiously with saline and suctioned out. The remainder of the intra-abdominal contents on brief survey appeared normal. The remaining local anesthetic was placed in the right upper quadrant. Trocars were removed under direct visualization. There was no evidence of bleeding from the trocar sites. The abdomen was desufflated through the supraumbilical port which was then removed. The supraumbilical fascial incision was closed with interrupted 0 Vicryl sutures. Port sites were irrigated with saline. Skin incisions were approximated with 4-0 Monocryl subcuticular sutures. Dressings were applied with Mastisol and half-inch brown Steri-Strips. The patient tolerated the procedure without apparent complication. Sponge, needle and instrument counts were correct at the end of the case. MD [facility] Brunner/LUCY /7:16 PM /4:33 PM
== END 2016-11-19 16:03 | disposition home or self-care (01) ==
LOC: NEPE 03:22 → NEDA 05:38 → INTOOBSV 05:38 → HPAC 11:19 → HOCB 20:32
PROVIDERS: ADMIT Surgery Trauma Surgery; ATTEND Surgery Trauma Surgery
DX: K80.12 Calculus of gallbladder with acute and chronic cholecystitis without obstruction (principal); K82.1 Hydrops of gallbladder; N30.01 Acute cystitis with hematuria; B95.7 Other staphylococcus as the cause of diseases classified elsewhere; I16.0 Hypertensive urgency; G43.909 Migraine, unspecified, not intractable, without status migrainosus
CPT/HCPCS: 00790; 47562; 76705; 80053; 81001; 83690; 84703; 85025; 86403; 87040; 87077; 87086; 87186; 88304; 94150; 96361; 96374; 96375; 96376; 99285; G0378; J0131; J0690; J0744; J1170; J1885; J2270; J2405; J3010; J7030; J7120